=== PATIENT | male | born 1970 | race Caucasian/White ===

== ENCOUNTER 2018-10-21 14:17 | Emergency (ER) | payer BC ==
[2018-10-21 14:56] LABS: HEMATOCRIT 40.9 % (39.0-50.0); HEMOGLOBIN 13.3 g/dl (14.0-18.0); IMMATURE GRANULOCYTES 0.8 % (0.0-5.0); MEAN CORPUSCULAR HGB 27.7 pG CALC (26.0-32.0); MEAN CORPUSCULAR HGB CONC 32.5 g/L CALC (32.0-36.0); NEUT# 6.6 thou/uL (1.82-7.42); RED BLOOD COUNT 4.81 mill/uL (4.70-6.10); RED CELL DISTRI WIDTH 14.7 % (11.5-15.5)
[2018-10-21 15:09] LABS: ALBUMIN 4.2 g/dL (3.2-5.0); ALKALINE PHOSPHATASE 57 u/l (38-126); ANION GAP 14 (6-22 (CALC)); BILIRUBIN, TOTAL 0.7 mg/dL (0.0-1.4); BUN 16 mg/dL (9-20); BUN/CREATININE RATIO 15 (12-20 (CALC)); CARBON DIOXIDE 23 mmol/l (22-30); CHLORIDE 109 mmol/l (95-108); CREATININE 1.1 mg/dL (0.7-1.3); GFR > 60 ML/MIN (>=60 (CALC)); GFR FOR AFR.AMER. > 60 ML/MIN (>=60 (CALC)); SGOT/AST 22 u/l (17-59); SODIUM 140 mmol/l (137-146); TOTAL PROTEIN 6.8 g/dL (6.3-8.2)
[2018-10-21 16:07] LABS: URINE BLOOD DIPSTICK LARGE (NEGATIVE); URINE GLUCOSE - DIPSTICK NEGATIVE (NEGATIVE); URINE KETONE TRACE mg/dL (NEGATIVE); URINE LEUK ESTERASE NEGATIVE (NEGATIVE); URINE NITRITE - DIPSTICK NEGATIVE (Negative); URINE PROTEIN - DIPSTICK 30 mg/dL (NEG-TRACE); URINE SPECIFIC GRAVITY 1.025; URINE UROBILINOGEN - DIPSTICK 0.2 E.U./dL (0.2)
[2018-10-21 16:08] LABS: URINE BILIRUBIN - DIPSTICK NEGATIVE (NEGATIVE); URINE COLOR DK. YELLOW
[2018-10-21 16:15] LABS: URINE RBC TNTC RBC/hpf (0-5)
[2018-10-21] MEDS ORDERED: TAMSULOSIN0.4 MG PO (16:15)
[2018-10-21] MEDS ORDERED: PERCOCET 10/31 COMBO PO (16:15)
[2018-10-21 16:20] VITALS: BP 169/94
[2018-10-21] MEDS ORDERED: PHENERGAN25 MG/TAB PO (16:23)
[2018-10-22] MEDS ORDERED: ZOFRAN8 MG PO (12:57)
[2018-10-22] MEDS ORDERED: TORADOL PO (12:57)
== END 2018-10-21 16:34 | disposition home or self-care (01) | DRG 694 ==
LOC: ED 14:17
PROVIDERS: Emergency Medicine
DX: N20.1 Calculus of ureter (principal); Z87.442 Personal history of urinary calculi

== ENCOUNTER 2018-10-22 12:43 | Emergency (ER) | payer BC ==
[~2018-10-22 12:43] MED LIST: PERCOCET 10/31 COMBO PO; PHENERGAN25 MG/TAB PO; TAMSULOSIN0.4 MG PO
[2018-10-22] MEDS ORDERED: TORADOL PO (12:57)
[2018-10-22] MEDS ORDERED: ZOFRAN8 MG PO (12:57)
[2018-10-22 13:34] VITALS: BP 130/76
== END 2018-10-22 13:41 | disposition home or self-care (01) | DRG 392 ==
LOC: ED 12:43
DX: R11.2 Nausea with vomiting, unspecified (principal); T44.6X5A Adverse effect of alpha-adrenoreceptor antagonists, initial encounter